=== PATIENT | female | born 2000 ===

== ENCOUNTER 2021-04-04 10:41 | Emergency (ER) | payer MEDICAID ==
--- NOTE | 2021-04-04 12:37 | EDM.PDOC ---
ED HPI GENERAL MEDICAL PROBLEM - General Chief Complaint: Laceration Stated Complaint: laceration Time Seen by Provider: 04/04/21 10:50 - History of Present Illness INITIAL COMMENTS - FREE TEXT/NARRATIVE: Pt is here with a family member with C/O passing out and falling to the floor this morning. She got up to use the BR and get a drink of water when she felt weak and her vision was getting dark. She tried to go back to bed when she fainted. She has a cut below her chin, and tells me she still feels weak. She has no Hx of fainting or heart trouble. She is not taking any current meds. - Related Data Allergies Allergy/AdvReac Type Severity Reaction Status Date / Time No Known Allergies Allergy Verified 04/04/21 11:41 Home Meds: Home Meds NK [No Known Home Meds] 04/04/21 [History] Past Medical History - Past Health History Medical/Surgical History: Denies Medical/Surgical History Social & Family History - Recreational Drug Use Recreational Drug Use: No ED ROS GENERAL - Review of Systems Review Of Systems: Comprehensive ROS is negative, except as noted in HPI. Constitutional: Reports: Weakness Skin: Reports: Other (laceration below chin.) Neurological: Reports: Syncope ED EXAM, SKIN/RASH Exam: See Below General Appearance: Other (she looks a little pale. No respiratory distress.) Eye Exam: Bilateral Eye: EOMI, PERRL Head: Other (She has a transverse laceration jusy below her chin that is 2 cm long, and gaping with any pressure applied. This goes through the epidermis only. No active bleeding.) ED SKIN PROCEDURES - Laceration/Wound Repair Lower Jaw Appearance: Clean Local Anesthesia - Lidocaine (Xylocaine): 1% with EPI Local Anesthetic Volume: 2cc Skin Prep: Saline Closed with: Sutures Lac/Wound length In cm: 2 Suture Size: 5-0 # of Sutures: 4 #1 Interpretation EKG Date: 04/04/21 Time: 11:30 Rhythm: NSR (NSR.) Course - Vital Signs Last Recorded V/S: Last Vital Signs Temp 97.7 F 04/04/21 11:45 Pulse 72 04/04/21 11:45 Resp 18 04/04/21 11:45 BP 120/77 04/04/21 11:45 Pulse Ox 98 04/04/21 11:45 - Orders/Labs/Meds Labs: Laboratory Tests 04/04/21 04/04/21 Range/Units 11:40 12:00 WBC 8.1 (4.0-11.0) K/uL RBC 4.74 (3.80-5.80) M/uL Hgb 15.2 (11.5-16.5) g/dL Hct 43.8 (37.0-47.0) % MCV 92 (76-96) fL MCH 32.1 H (27.0-32.0) pg MCHC 34.7 (31.0-35.0) g/dL RDW 11.9 (11.0-16.0) % Plt Count 357 (150-500) K/uL MPV 8.9 (6.0-10.0) fL Neut % (Auto) 68.9 (45.0-70.0) % Lymph % (Auto) 20.9 (20.0-40.0) % [place] % (Auto) 8.3 (3.0-10.0) % Eos % (Auto) 1.5 (1.0-5.0) % Baso % (Auto) 0.4 (0.0-0.5) % Neut # (Auto) 5.55 (2.00-7.50) K/uL Lymph # (Auto) 1.68 (1.50-4.00) K/uL [place] # (Auto) 0.67 (0.20-0.80) K/uL Eos # (Auto) 0.12 (0.04-0.40) K/uL Baso # (Auto) 0.03 (0.02-0.10) K/uL Sodium 140 (136-145) mmol/L Potassium 4.5 (3.5-5.1) mmol/L Chloride 105 (98-107) mmol/L Carbon Dioxide 26.4 (21.0-32.0) mmol/L Anion Gap 13.1 (5.0-15.0) mmol/L BUN 18 (8-26) mg/dL Creatinine 0.91 (0.55-1.02) mg/dL Est Cr Clr Drug Dosing TNP Estimated GFR (MDRD) > 60 (>60) MLS/MIN BUN/Creatinine Ratio 19.8 (6-25) Glucose 103 H (74-100) mg/dL Calcium 8.5 (8.5-10.1) mg/dL Total Bilirubin 0.4 (0.0-1.0) mg/dL AST 18 (15-37) U/L ALT 24 (12-78) U/L Alkaline Phosphatase 77 (46-116) U/L Total Protein 7.6 (6.4-8.2) g/dL Albumin 3.8 (3.4-5.0) g/dL Globulin 3.8 (2.2-4.2) g/dL Albumin/Globulin Ratio 1.0 (0.8-2.0) - Re-Assessments/Exams Free Text/Narrative Re-Assessment/Exam: 04/04/21 12:38 Orthostatic BP and pulse are stable. EKG shows a NSR. Labs are ok. I had the Pt walk around the room and she did well. She tells us she was drinking alcohol last nite, and rarely does this. She can be discharged with family. Rest today - increase fluids. Monitor the lac for infection. Suture removal in 7-8 days. Departure - Departure Time of Disposition: 12:20 Disposition: Home, Self-Care 01 Condition: Good Clinical Impression: Laceration of chin without complication Qualifiers: Encounter type: initial encounter Qualified Code(s): S01.81XA - Laceration without foreign body of other part of head, initial encounter Episode of syncope Qualifiers: Syncope type: unspecified Qualified Code(s): R55 - Syncope and collapse - Discharge Information *PRESCRIPTION DRUG MONITORING PROGRAM REVIEWED*: No *COPY OF PRESCRIPTION DRUG MONITORING REPORT IN PATIENT INES: No Instructions: Syncope, [id number], Sutured Wound Care, [id number] Forms: ED Department Discharge Care Plan Goals: sutures out in 1 week. Sepsis Event Note (ED) - Evaluation Sepsis Screening Result: No Definite Risk - Focused Exam Vital Signs: Vital Signs Temp Pulse Resp BP Pulse Ox 04/04/21 11:45 97.7 F 72 18 120/77 98
== END 2021-04-04 12:23 | disposition home or self-care (01) ==
LOC: LB.ED 10:41
DX: R55 Syncope and collapse (principal); S01.81XA Laceration without foreign body of other part of head, initial encounter; W01.0XXA Fall on same level from slipping, tripping and stumbling without subsequent striking against object, initial encounter
CPT/HCPCS: 12011; 36415; 80053; 85025; 93005; 99283-25